=== PATIENT | female | born 1975 | race Caucasian/White ===

== ENCOUNTER 2017-11-19 04:40 | Emergency (ER) | payer OTHER ==
[~2017-11-19] VITALS: Ht 165.1 cm; Wt 81.6 kg
[2017-11-19 04:46] VITALS: BP 132/68
--- NOTE | 2017-11-19 04:50 | NUR ---
TO BED # 4 AMBULATORY
--- NOTE | 2017-11-19 04:53 | NUR ---
PT TAKEN TO BED 3
--- NOTE | 2017-11-19 05:04 | NUR ---
42Y/F C/O BL EYE REDNESS AND DRAINAGE PT WAS SEEN IN [place] 2 DAYS AGO FOR SAME S/S AND NOW HAS WORSENING SWELLING TO RT EYE. 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 LEFT EYE HAS REDNESS NOTED , LEFT PERRL. PT IS CURRENTLY TAKING CEPHALEXIN, AND MOXIFLOXACIN. NO PMH,NKA
[2017-11-19] MEDS ORDERED: KETOROLAC 30 MG/ML VIAL IM SCH (05:11)
[2017-11-19] MEDS ORDERED: KETOROLAC 30 MG/ML VIAL ONE (05:22)
--- NOTE | 2017-11-19 05:30 | NUR ---
30MG TORADOL GIVEN IM TO RT DELTOID PER VERBAL ORDER DR. BRIGGS, PT IS NADR
[2017-11-19 05:34] VITALS: BP 130/63
--- NOTE | 2017-11-19 05:34 | NUR ---
Patient discharged with v/s stable. Written and verbal after care instructions given and explained. Patient alert, oriented and verbalized understanding of instructions. Ambulatory with steady gait. All questions addressed prior to discharge. ID band removed. Patient advised to follow up with PMD. Rx of IBUPROFEN, ACULAR given. Patient educated on indication of medication including possible reaction and side effects. Opportunity to ask questions provided and answered.
[2017-11-19] MEDS ORDERED: KETOROLAC 30 MG/ML VIAL IM ONE (05:45)
[2017-11-19] MEDS ORDERED: KETOROLAC 0.5% OP 3 ML BTL OP SCH (09:00)
== END 2017-11-19 05:34 | disposition home or self-care (01) ==
LOC: MED 04:40
DX: H10.9 Unspecified conjunctivitis (principal); H05.221 Edema of right orbit; I10 Essential (primary) hypertension
CPT/HCPCS: 96372; 99283; J1885

== ENCOUNTER 2018-10-15 00:40 | Emergency (ER) | payer OTHER ==
[~2018-10-15] VITALS: Ht 165.1 cm; Wt 81.6 kg
[2018-10-15 00:45] VITALS: BP 147/67
--- NOTE | 2018-10-15 00:45 | NUR ---
TO BED # 02 AMBULATORY, REPORT GIVEN TO MILY RN
--- NOTE | 2018-10-15 00:56 | NUR ---
PT TO ED WITH C/O ABD PAIN TO THE EPIGASTRIC REGION INTERMITTENT X 2 WEEKS. PT DENIES N/V/D. PER PT "I HAVE A HERNIA AND ITS HURTING". PT DENIES PAIN UPON PALPATION. BOWEL SOUNDS ACTIVE TO ALL QUADRANTS. NO OBVIOUS DISTENTION NOTED. PT PLACED INTO BED, PENDING MD MODI.
[2018-10-15] MEDS ORDERED: KETOROLAC 30 MG/ML VIAL IM ONE (01:30)
--- NOTE | 2018-10-15 01:50 | NUR ---
PATIENT ELOPED FROM FACILITY. DISCHARGE INSTRUCTIONS NOT GIVEN TO PATIENT. DR. ROMANO NOTIFIED.
[2018-10-15 01:52] VITALS: BP 147/67
== END 2018-10-15 01:50 | disposition left against medical advice (07) ==
LOC: MED 00:40
DX: R10.13 Epigastric pain (principal); I10 Essential (primary) hypertension
CPT/HCPCS: 96372; 99283; J1885

== ENCOUNTER 2020-04-08 06:40 | Emergency (ER) | payer OTHER ==
--- NOTE | 2020-04-08 06:45 | NUR ---
PT LEFT WITHOUT BEING SEEN. UNABLE TO TRIAGE PT IN TENT.
== END 2020-04-08 06:45 | disposition left against medical advice (07) ==
LOC: MED 06:40
DX: Z53.21 Procedure and treatment not carried out due to patient leaving prior to being seen by health care provider (principal)

== ENCOUNTER 2020-11-29 09:51 | Emergency (ER) | payer OTHER ==
[~2020-11-29] VITALS: Ht 167.6 cm; Wt 81.6 kg
[2020-11-29 10:01] VITALS: BP 144/67
[2020-11-29] MEDS ORDERED: NACL 0.9% 1,000 ML IV SCH (10:35)
[2020-11-29] MEDS ORDERED: ALUMINUM HYD/MAG/SIMETHICONE 30 ML, DICYCLOMINE HCL LIQUID 20 MG, LIDOCAINE VISCOUS 2% ... PO ONE ×3 (10:35)
[2020-11-29] MEDS ORDERED: MORPHINE SULFATE 4 MG/ML SYR IVP ONE (10:35)
[2020-11-29] MEDS ORDERED: ONDANSETRON 4 MG/2 ML VIAL IVP ONE (10:35)
[2020-11-29] MEDS ORDERED: LIDOCAINE VISCOUS 2% 20 ML UDC ONE (10:36)
[2020-11-29] MEDS ORDERED: DICYCLOMINE HCL LIQUID 10 MG/5 ML UDC ONE (10:37)
[2020-11-29] MEDS ORDERED: ALUMINUM HYD/MAG/SIMETHICONE 30 ML UDC ONE (10:37)
[2020-11-29 10:46] LABS: MEAN CORPUSCULAR HEMOGLOBIN 16 pg (27-31); MEAN CORPUSCULAR HGB CONC 27 g/dL (33-37); MEAN CORPUSCULAR VOLUME 58.5 fL (80-94); PLATELET COUNT (AUTO) 296 K/uL (140-450); RED BLOOD CELL COUNT(AUTO) 2.67 MIL/uL (4.20-5.40); RED CELL DISTRIBUTION WIDTH 21.5 % (11.6-13.7); WHITE BLOOD COUNT (AUTO) 3.7 K/uL (4.8-10.8)
[2020-11-29 10:58] LABS: HEMOGLOBIN 4.1 g/dL (12.0-16.0)
[2020-11-29 10:59] LABS: HEMATOCRIT 15.6 % (36-48)
[2020-11-29 11:00] LABS: ALBUMIN 3.5 g/dL (3.4-5.0); ANION GAP 12.4 (8-16); CARBON DIOXIDE 26.8 mmol/L (21-32); CREATININE 0.9 mg/dL (0.6-1.3); POTASSIUM 4.2 mmol/L (3.5-5.1); TOTAL BILIRUBIN 0.4 mg/dL (0.0-1.0)
[2020-11-29 11:19] LABS: EOSINOPHILS % (MANUAL) 1 % (0-4)
[2020-11-29 11:20] LABS: LYMPHOCYTES % (MANUAL) 23 % (20-46); MONOCYTES % (MANUAL) 8 % (5-12)
[2020-11-29 11:50] LABS: PROTHROMBIN TIME 9.7 secs (10.8-13.4)
[2020-11-29 12:02] VITALS: BP 137/60
== END 2020-11-29 11:56 | disposition left against medical advice (07) ==
LOC: MED 09:51
DX: D50.0 Iron deficiency anemia secondary to blood loss (chronic) (principal); R10.31 Right lower quadrant pain; R11.10 Vomiting, unspecified
CPT/HCPCS: 36415; 74021; 76705; 80053; 81002; 81025; 83690; 85025; 85610; 85730; 86886; 86900; 86901; 86920; 96361; 96374; 99285; J2405; J2270

== ENCOUNTER 2020-11-29 17:59 | Emergency (ER) | payer OTHER ==
[~2020-11-29] VITALS: Ht 152.4 cm; Wt 84.4 kg
[2020-11-29 18:10] VITALS: BP 131/60
[2020-11-29 18:51] LABS: BASOPHILS % (AUTO) 0.6 % (0.0-2.0); LYMPHOCYTES # (AUTO) 1.2 K/uL (2.5-16.5); LYMPHOCYTES % (AUTO) 29.1 % (20.5-51.1); MEAN CORPUSCULAR HEMOGLOBIN 16 pg (27-31); MEAN CORPUSCULAR HGB CONC 27 g/dL (33-37); MEAN CORPUSCULAR VOLUME 58.7 fL (80-94); MONOCYTES # (AUTO) 0.2 K/uL (0.8-1.0); NEUTROPHILS # (AUTO) 2.6 K/uL (1.8-7.7); NEUTROPHILS % (AUTO) 64.3 % (42.2-75.2); PLATELET COUNT (AUTO) 295 K/uL (140-450); RED BLOOD CELL COUNT(AUTO) 2.75 MIL/uL (4.20-5.40); RED CELL DISTRIBUTION WIDTH 22.3 % (11.6-13.7)
[2020-11-29 19:00] LABS: HEMATOCRIT 16.1 % (36-48); HEMOGLOBIN 4.3 g/dL (12.0-16.0)
[2020-11-29 19:07] LABS: ALBUMIN 3.8 g/dL (3.4-5.0); ANION GAP 12.8 (8-16); CARBON DIOXIDE 26.5 mmol/L (21-32); POTASSIUM 4.3 mmol/L (3.5-5.1); PROTHROMBIN TIME 9.8 secs (10.8-13.4); TOTAL BILIRUBIN 0.5 mg/dL (0.0-1.0)
[2020-11-29 19:36] VITALS: BP 128/68
== END 2020-11-29 20:20 | disposition left against medical advice (07) ==
LOC: MED 17:59
DX: D64.89 Other specified anemias (principal); Z98.890 Other specified postprocedural states
CPT/HCPCS: 36415; 80053; 85025; 85610; 85730; 86886; 86900; 86901; 86920; 99283

== ENCOUNTER 2021-04-27 18:50 | Emergency (ER) | payer OTHER ==
[~2021-04-27] VITALS: Ht 167.6 cm; Wt 83.0 kg
[2021-04-27 18:55] VITALS: BP 145/68
--- NOTE | 2021-04-27 18:58 | NUR ---
PT SENT TO LOBBY
--- NOTE | 2021-04-27 20:41 | NUR ---
PT AMBULATED TO BED #8
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
[2021-04-27] MEDS: HYDROcodone/APAP 5/325 MG 1 TAB TAB PO ONE (20:48)
[2021-04-27] MEDS ORDERED: KETOROLAC 30 MG/ML VIAL ONE (20:51)
[2021-04-27] MEDS: KETOROLAC 30 MG/ML VIAL IM ONE (21:00)
--- NOTE | 2021-04-27 21:28 | NUR ---
VERBAL ORDER FOR LIDOCAINE 2% WITH EPI INJ RECEIVED FROM DR. FRANKS. ORDER CARRIED OUT.
[2021-04-27] MEDS: LIDOCAINE/EPI 2% 1:100000 20 ML VIAL INJ ONE (21:38)
--- NOTE | 2021-04-27 22:09 | NUR ---
ERMD AT BEDSIDE FOR PROCEDURE.
[2021-04-27] MEDS ORDERED: BACITRACIN OINT 500 UNITS/GM PKT TP ONE (22:29)
[2021-04-27] MEDS: BACITRACIN OINT 500 UNITS/GM PKT TP ONE ×2 (22:36→23:33)
--- NOTE | 2021-04-27 22:44 | NUR ---
ANIMAL BITE REPORT REFUSED BY PT.
[2021-04-27] MEDS ORDERED: AMOX-1000 PO (23:16)
[2021-04-27] MEDS ORDERED: BACI-105 TP (23:18)
[2021-04-27 23:30] VITALS: BP 129/66
--- NOTE | 2021-04-27 23:30 | NUR ---
Patient discharged with v/s stable. Written and verbal after care instructions given and explained. Patient alert, oriented and verbalized understanding of instructions. Ambulatory with steady gait. All questions addressed prior to discharge. ID band removed. Patient advised to follow up with PMD. Rx of AUMENTIN AND BACITRACIN given. Patient educated on indication of medication including possible reaction and side effects. Opportunity to ask questions provided and answered.
== END 2021-04-27 23:30 | disposition home or self-care (01) ==
LOC: MED 18:50
DX: S61.001A Unspecified open wound of right thumb without damage to nail, initial encounter (principal); S61.452A Open bite of left hand, initial encounter; Z79.899 Other long term (current) drug therapy; W54.0XXA Bitten by dog, initial encounter; Y93.89 Activity, other specified; Y92.89 Other specified places as the place of occurrence of the external cause; Y99.8 Other external cause status
CPT/HCPCS: 73130; 90471; 96372; 99284; J1885; J2001; 90715

== ENCOUNTER 2021-09-03 03:53 | Emergency (ER) | payer OTHER ==
[~2021-09-03] VITALS: Ht 165.1 cm; Wt 82.7 kg
[~2021-09-03 03:53] MED LIST: AMOX-1000 PO; BACI-105 TP
[2021-09-03 03:56] VITALS: BP 140/68
--- NOTE | 2021-09-03 04:13 | NUR ---
pt taken to bed 06. placed on color television console monitor.
--- NOTE | 2021-09-03 04:15 | NUR ---
Received in bed 6 with c/o 01/22 pressure like chest pain rad to left side of chest x1 month. reports sob with activity. +palpitations. bilat pitting edmea to LE. denies hx, rx and allergies
--- NOTE | 2021-09-03 04:21 | NUR ---
DR ROSADO AT BEDSIDE
[2021-09-03] MEDS ORDERED: ATA25 PO (04:33)
[2021-09-03] MEDS ORDERED: IBUP-2213 PO (04:33)
--- NOTE | 2021-09-03 04:35 | NUR ---
Patient discharged with v/s stable. Written and verbal after care instructions given and explained. Patient alert, oriented and verbalized understanding of instructions. Ambulatory with steady gait. All questions addressed prior to discharge. ID band removed. Patient advised to follow up with PMD. Rx of ATARAK & IBUPROFEN given. Patient educated on indication of medication including possible reaction and side effects. Opportunity to ask questions provided and answered.
== END 2021-09-03 04:35 | disposition home or self-care (01) ==
LOC: MED 03:53
DX: R07.9 Chest pain, unspecified (principal); R00.2 Palpitations; R06.02 Shortness of breath; F17.200 Nicotine dependence, unspecified, uncomplicated; Z98.890 Other specified postprocedural states; Z79.899 Other long term (current) drug therapy
CPT/HCPCS: 93005; 99283

== ENCOUNTER 2021-10-31 21:21 | Emergency (ER) | payer OTHER ==
[~2021-10-31] VITALS: Ht 165.1 cm; Wt 78.9 kg
[~2021-10-31 21:21] MED LIST changes: +ATA25 PO; +IBUP-2213 PO
[2021-10-31 21:38] VITALS: BP 129/72
--- NOTE | 2021-10-31 21:43 | NUR ---
PT TO LOBBY
--- NOTE | 2021-10-31 22:22 | NUR ---
LAB CALLED FOR PT NO ANSWER AT THIS TIME
--- NOTE | 2021-10-31 22:22 | NUR ---
Tor nassar in [facility] - 10/31/21 at [id number] by TIFFANIE LAB CALLED FOR PT
--- NOTE | 2021-10-31 22:37 | NUR ---
PT CALLED FOR XR NO ANSWER AT THIS TIME
--- NOTE | 2021-10-31 22:44 | NUR ---
PT CALLED- NO ANSWER
== END 2021-10-31 22:40 | disposition left against medical advice (07) ==
LOC: MED 21:21
DX: R79.9 Abnormal finding of blood chemistry, unspecified (principal); Z53.21 Procedure and treatment not carried out due to patient leaving prior to being seen by health care provider

== ENCOUNTER 2021-11-02 21:40 | Emergency (ER) | payer OTHER ==
[~2021-11-02] VITALS: Ht 165.1 cm; Wt 77.1 kg
[2021-11-02 21:45] VITALS: BP 126/43
--- NOTE | 2021-11-02 21:51 | NUR ---
AMBULATED TO ROOM 1 FROM TRIAGE
--- NOTE | 2021-11-02 21:52 | NUR ---
Patient ambulated to bed 1.
--- NOTE | 2021-11-02 21:52 | NUR ---
Tor nassar in [facility] - 11/02/21 at 2152 by SILVIO PT TAKEN TO BED 1
--- NOTE | 2021-11-02 21:54 | NUR ---
Patient BIB by family. C/O re-check x today. Patient reported, had light headache, Hx Anemia, Patient left with out seen on 10/31/21. Patient states " I had light headache today, I need blood transfusion." A/O,X4, skin pale, light headache, no SOB, no N/V/D.
--- NOTE | 2021-11-02 22:03 | NUR ---
PATIENT LEFT WITHOUT BEING SEEN BY DR. Conley. NO FURTHER CARE PROVIDED FOR PATIENT.
--- NOTE | 2021-11-02 22:03 | NUR ---
PT WALKED OUT OF ER
--- NOTE | 2021-11-02 22:03 | NUR ---
Patient walked out from ER, Patient states " I want to talk with my mother, It's too dramatic."
== END 2021-11-02 22:03 | disposition left against medical advice (07) ==
LOC: MED 21:40
DX: D64.9 Anemia, unspecified (principal); Z53.21 Procedure and treatment not carried out due to patient leaving prior to being seen by health care provider
CPT/HCPCS: 81025

== ENCOUNTER 2021-11-06 17:31 | Emergency (ER) | payer OTHER ==
[~2021-11-06] VITALS: Ht 165.1 cm; Wt 77.1 kg
[~2021-11-06 17:31] MED LIST changes: -AMOX-1000 PO; -BACI-105 TP; -IBUP-2213 PO
[2021-11-06 17:49] VITALS: BP 135/70
== END 2021-11-06 18:32 | disposition left against medical advice (07) ==
LOC: MED 17:31
DX: D64.9 Anemia, unspecified (principal); R53.83 Other fatigue; R42 Dizziness and giddiness; F17.290 Nicotine dependence, other tobacco product, uncomplicated; Z98.890 Other specified postprocedural states; Z79.899 Other long term (current) drug therapy
CPT/HCPCS: 99281

== ENCOUNTER 2022-04-02 05:03 | Emergency (ER) | payer OTHER ==
[~2022-04-02] VITALS: Ht 165.1 cm; Wt 81.6 kg
[2022-04-02 05:14] VITALS: BP 130/72
--- NOTE | 2022-04-02 05:22 | NUR ---
TO LOBBY FOLLOWING TRIAGE
[2022-04-02] MEDS ORDERED: TETRACAINE HCL/PF 0.5% OPTH 4 ML BTL OP ONE (06:20)
[2022-04-02] MEDS ORDERED: FLUORESCEIN OPTH STRIP 1 MG OP ONE (06:20)
--- NOTE | 2022-04-02 06:35 | NUR ---
OD IRRIGATED WITH NS.
[2022-04-02] MEDS ORDERED: ERYT5OIN58 OP (07:00)
[2022-04-02 07:32] VITALS: BP 124/70
--- NOTE | 2022-04-02 07:33 | NUR ---
Patient discharged with v/s stable. Written and verbal after care instructions given and explained. Patient alert, oriented and verbalized understanding of instructions. Ambulatory with steady gait. All questions addressed prior to discharge. ID band removed. Patient advised to follow up with PMD. Rx of ERYHTROMYCIN given. Patient educated on indication of medication including possible reaction and side effects. Opportunity to ask questions provided and answered.
== END 2022-04-02 07:32 | disposition home or self-care (01) ==
LOC: MED 05:03
DX: S05.01XA Injury of conjunctiva and corneal abrasion without foreign body, right eye, initial encounter (principal); X58.XXXA Exposure to other specified factors, initial encounter; Y93.89 Activity, other specified; Y92.89 Other specified places as the place of occurrence of the external cause; Y99.8 Other external cause status
CPT/HCPCS: 99283